=== PATIENT | female | born 1995 | race Caucasian/White ===

== ENCOUNTER 2017-07-04 21:51 | Emergency (ER) | payer OTHER ==
[~2017-07-04] VITALS: Ht 170.2 cm; Wt 89.7 kg
[2017-07-04 21:54] VITALS: TEMP 36.8; Ht 170.2 cm; Wt 89.7 kg
[2017-07-04] MEDS ORDERED: PENI500T2 PO (22:20)
--- NOTE | 2017-07-04 22:21 | EMERGENCY ROOM VISIT NOTE ---
History First contact with patient: 21:57 Chief Complaint: DENTAL PAIN Stated Complaint: SWOLLEN GUMS, LOCK JAW, HURTS TO SWALLOW,BARELY OP History of Present Illness The patient is a 21 year old female who presents to the Emergency Room with complaints of swelling in the right lower gums. The patient states that she has had pain and swelling in her right lower gums for the past 3 days. She reports difficulty opening her mouth due to the pain. She rates her discomfort a 5/10. She is able to swallow without difficulty. She denies any pain in the neck. She states that she does not have a dentist locally and did cause some local tenderness, but is unable to make an appointment until next week. She denies any facial swelling. She denies any fevers. Review of Systems A complete 10 point review of systems was reviewed with the patient with pertinent positives and negatives as per history of present illness. All else were negative. Social History Smoking Status: Never Smoker Alcohol Use: occasionally Marital Status: single Housing Status: lives with roommate Occupation Status: [employer] student Current/Historical Medications Scheduled Penicillin V Potassium (Veetids), 1 TAB PO QID Physical Exam Vital Signs Date Time Temp Pulse Resp B/P (MAP) Pulse Ox O2 Delivery O2 Flow Rate FiO2 07/04/17 22:34 88 16 123/79 98 07/04/17 21:54 36.8 88 16 123/79 98 Room Air Physical Exam VITALS: Vitals are noted on the nurse's note and reviewed by myself. Vital signs stable. GENERAL: This is a 21-year-old female, in no acute distress, nondiaphoretic, well-developed well-nourished. SKIN: The skin was without rashes. EARS: External auditory canals clear, tympanic membranes pearly krause without erythema or effusion bilaterally. EYES: Pupils equal round and reactive to light and accommodation. MOUTH: Mucous membranes moist. There is some swelling of the right lower posterior gums surrounding the back molars. No evidence of abscess. No facial swelling. NECK: Supple without nuchal rigidity. No lymphadenopathy. HEART: Regular rate and rhythm without murmurs gallops or rubs. LUNGS: Clear to auscultation bilaterally without wheezes, rales or rhonchi. NEURO: Patient was alert and oriented to person place and time. Medical Decision & Procedures Medications Administered Medications (Trade) Dose Ordered Sig/Walt Route Start Time Stop Time Status Last Admin Dose Admin Penicillin V Potassium (Pen-Vk 500MG Home Pack) 1 homepack UD ONCE PO 07/04/17 22:30 07/04/17 22:31 DC 07/04/17 22:32 1 HOMEPACK Medical Decision Differential diagnosis includes dental abscess, facial cellulitis, Coy angina , among others. The patient was evaluated as above. There is no evidence of Coy angina. She appears to have a dental infection and will be placed on penicillin. She was instructed to take ibuprofen. She will follow-up with a dentist locally. She was advised to return for facial swelling, fevers, difficulty swallowing or any other new/concerning symptoms. She verbalized understanding of my assessment and treatment plan and was discharged home in good condition. Medication Reconcilliation Current Medication List: was personally reviewed by me Blood Pressure Screening Patient's blood pressure: Normal blood pressure Impression Primary Impression: Dental infection Departure Information Dispostion Home / Self-Care Condition GOOD Prescriptions Penicillin V Potassium (VEETIDS) 500 Mg Tab 1 TAB PO QID for 10 Days, #40 TAB Prov: Radha Reyes ., BOUCHRA 07/04/17 Patient Instructions My [facility] Additional Instructions You have been treated in the Emergency Department for Dental Pain. You were prescribed Pen VK to be taken as prescribed. This is an antibiotic. All antibiotics have the potential to cause diarrhea. Stop this medication and contact a medical provider if you were to develop any significant adverse side effects including: wheezing, shortness of breath, passing out, vomiting, or a diffuse rash. Always take antibiotics as directed and COMPLETE the ENTIRE course regardless of the improvement of your symptoms. For pain control, you can use the following [id number] medicines (if >12 yo): - Regular strength (325mg/tab) Tylenol (acetaminophen) 2 tabs every 4-6 hours as needed. Do not exceed 12 tablets in a 24 hour period. Avoid taking more than 4 grams (4000 mg) of Tylenol per day. This includes any other sources of acetaminophen you may take on a regular basis. - Regular strength (200 mg/tab) Advil (ibuprofen) 3-4 tabs every 6 hours as needed. Do not exceed a dose of 3200 mg per day. Refrain from smoking cigarettes or using chewing tobacco until you have been evaluated by your dentist. Keeping beverages lukewarm and consuming soft foods can decrease your pain. Warm compresses over the affected area may offer some relief. You MUST seek evaluation of your dental pain by a dentist following your visit to the Emergency Department. The Emergency Department is not capable of treating dental issues long-term. You should call your dentist as soon as possible to make an appointment for evaluation of your dental pain. Follow up with Dr. Wright [phone] [address], [address] Return to the emergency department if you develop the following symptoms despite treatment course outlined above: fever, intractable pain, increased redness, swelling, or purulent discharge.
[2017-07-04] MEDS ORDERED: PENICILLIN HOME PACK 500MG (4 DOSES)BTL PO ONE (22:30)
[2017-07-04 22:34] VITALS: BP 123/79; PULSE 88; O2SAT 98
== END 2017-07-04 22:35 | disposition home or self-care (01) ==
LOC: C.EDB 21:53 → C.EDA 22:35
DX: K04.7 Periapical abscess without sinus (principal)